=== PATIENT | female | born 1990 | race African-American/Black ===

== ENCOUNTER 2017-10-27 03:20 | Emergency (ER) | payer SELFPAY ==
[~2017-10-27] VITALS: Ht 165.1 cm; Wt 123.8 kg
[~2017-10-27 03:20] MED LIST: CEPH-368 PO; CIPR250T2 PO; FURO20TA3 PO; IBUP-1222 PO; LEVO500T47 PO; OSEL75CA PO
[2017-10-27] MEDS ORDERED: METH40TA3 PO (03:50)
[2017-10-27 05:39] VITALS: BP 129/79
== END 2017-10-27 07:06 | disposition home or self-care (01) ==
LOC: ED 06:53
DX: S33.5XXA Sprain of ligaments of lumbar spine, initial encounter (principal); S13.4XXA Sprain of ligaments of cervical spine, initial encounter; V43.53XA Car driver injured in collision with pick-up truck in traffic accident, initial encounter; Y93.89 Activity, other specified; Y92.410 Unspecified street and highway as the place of occurrence of the external cause; Y99.8 Other external cause status
CPT/HCPCS: 72020; 72050; 72110; 99284

== ENCOUNTER 2018-07-31 15:50 | Emergency (ER) | payer SELFPAY ==
[~2018-07-31] VITALS: Ht 165.1 cm; Wt 117.9 kg
[~2018-07-31 15:50] MED LIST changes: +METH40TA3 PO
[2018-07-31 17:00] LABS: BASOPHILS # (AUTO) 0.03 x10^3/uL (0-0.1); BASOPHILS % (AUTO) 1 % (0-1); EOSINOPHILS # (AUTO) 0.05 x10^3/uL (0-0.4); EOSINOPHILS % (AUTO) 1 % (1-7); LYMPHOCYTES % (AUTO) 40 % (22-44); MD NO; MEAN CORPUSCULAR HEMOGLOBIN 25.5 pg (27.0-34.8); MEAN CORPUSCULAR HGB CONC 31.1 g/dL (32.4-35.8); MEAN CORPUSCULAR VOLUME 81.9 fL (80-100); MEAN PLATELET VOLUME 8.6 fL (7.4-10.4); MONOCYTES # (AUTO) 0.38 x10^3/uL (0.2-0.8); MONOCYTES % (AUTO) 6 % (2-9); NEUTROPHILS # (AUTO) 3.29 x10^3/uL (1.8-6.8); NEUTROPHILS % (AUTO) 53 % (42-75); PLATELET COUNT 369 x10^3/uL (130-400); RED BLOOD COUNT 4.24 x10^6/uL (3.82-5.3); RED CELL DISTRIBUTION WIDTH 16.7 % (9.6-15.2)
[2018-07-31 17:03] LABS: ALBUMIN 3.1 g/dL (3.4-5.0); ANION GAP 4 mmol/L (5-15); CALCIUM 8.2 mg/dL (8.5-10.1); CHLORIDE 108 mmol/L (98-107)
[2018-07-31 17:07] LABS: ALANINE AMINOTRANSFERASE 25 U/L (12-78); ALKALINE PHOSPHATASE 119 U/L (45-117); BILIRUBIN,TOTAL 0.2 mg/dL (0.2-1.0); CREATININE 0.87 mg/dL (0.55-1.02); TOTAL PROTEIN 8.1 g/dL (6.4-8.2)
[2018-07-31 17:36] LABS: CULTURE INDICATED? YES; MICROSCOPIC INDICATED
[2018-07-31 19:15] VITALS: BP 144/83
[2018-07-31 19:16] LABS: HCG UR SG 1.021 (1.003-1.030)
== END 2018-07-31 20:14 | disposition home or self-care (01) ==
LOC: ED 20:00
DX: N30.00 Acute cystitis without hematuria (principal)
CPT/HCPCS: 36415; 80053; 81001; 81025; 83690; 85025; 87086; 99283

== ENCOUNTER 2021-01-19 14:16 | Emergency (ER) | payer MEDICAID ==
[~2021-01-19] VITALS: Ht 165.1 cm; Wt 130.6 kg
[~2021-01-19 14:16] MED LIST changes: -OSEL75CA PO; +OSEL75CA26 PO
[2021-01-19 14:19] VITALS: BP 154/100
--- NOTE | 2021-01-19 16:03 | NUR ---
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
== END 2021-01-19 17:27 | disposition home or self-care (01) ==
LOC: ED 14:46
DX: U07.1 COVID-19 (principal); R50.9 Fever, unspecified; R05 Cough; M79.10 Myalgia, unspecified site; R00.0 Tachycardia, unspecified
CPT/HCPCS: 99281

== ENCOUNTER 2021-01-20 21:36 | Inpatient (IN) | payer MEDICAID ==
[~2021-01-20] VITALS: Ht 165.1 cm; Wt 130.8 kg
[2021-01-20] MEDS ORDERED: ONDANSETRON 2MG/ML, 2ML IVPush ONE (22:00)
[2021-01-20] MEDS ORDERED: SODIUM CHLORIDE FLUSH 10ML SYR IVF ONE (22:00)
[2021-01-20] MEDS ORDERED: SODIUM CHLORIDE 0.9% 1,000ML IVBOLUS ONE (22:00)
--- NOTE | 2021-01-20 22:20 | NUR ---
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
[2021-01-20 22:22] LABS: BASOPHILS % (AUTO) 0 % (0-1); EOSINOPHILS % (AUTO) 0 % (1-7); LYMPHOCYTES % (AUTO) 15 % (22-44); MEAN CORPUSCULAR HEMOGLOBIN 27.3 pg (27.0-34.8); MEAN CORPUSCULAR HGB CONC 32.2 g/dL (32.4-35.8); MEAN PLATELET VOLUME 7.9 fL (7.4-10.4); MONOCYTES % (AUTO) 4 % (2-9); NEUTROPHILS % (AUTO) 81 % (42-75); PLATELET COUNT 274 x10^3/uL (130-400); RED BLOOD COUNT 5.34 x10^6/uL (3.82-5.3); RED CELL DISTRIBUTION WIDTH 16.5 % (9.6-15.2)
[2021-01-20 22:34] LABS: ALANINE AMINOTRANSFERASE 33 U/L (12-78); ALBUMIN 3.2 g/dL (3.4-5.0); ANION GAP 5 mmol/L (5-15); CALCIUM 8.2 mg/dL (8.5-10.1); CHLORIDE 105 mmol/L (98-107); CREATININE 0.78 mg/dL (0.55-1.02)
[2021-01-20 22:39] LABS: ALKALINE PHOSPHATASE 83 U/L (45-117); BILIRUBIN,TOTAL 0.2 mg/dL (0.2-1.0); TOTAL PROTEIN 9.1 g/dL (6.4-8.2)
[2021-01-20] MEDS ORDERED: ONDANSETRON 2MG/ML, 2ML ONE (22:55)
--- NOTE | 2021-01-20 23:27 | NUR ---
PT PLACED BACK ON 2L NC.
--- NOTE | 2021-01-20 23:27 | NUR ---
PT TAKEN OFF O2 AND MAINTAINED O2 97% FOR 5 MINS BUT THEN DESATED TO 79% AT REST ON RA.
[2021-01-21] MEDS ORDERED: KETOROLAC 30 MG/1 ML IVPush ONE (01:00)
[2021-01-21] MEDS ORDERED: AZITHROMYCIN 500 MG in SODIUM CHLORIDE 0.9% 250 ML IV ONE (01:00)
[2021-01-21] MEDS ORDERED: CEFTRIAXONE 1,000 MG in DEXTROSE 5% 50 ML IVPB ONE (01:00)
[2021-01-21] MEDS ORDERED: KETOROLAC 30 MG/1 ML ONE (01:00)
--- NOTE | 2021-01-21 01:12 | NUR ---
PT SWABBED FOR COVID-19 AND WALKED TO LAB
[2021-01-21 01:51] VITALS: BP 101/67
[2021-01-21] MEDS ORDERED: MELATONIN 5 MG TABLET PO PRN (02:00)
[2021-01-21] MEDS ORDERED: POLYETHYLENE GLYCOL 17 GM PACKET PO PRN (02:00)
[2021-01-21] MEDS ORDERED: ONDANSETRON 2MG/ML, 2ML IVPush PRN (02:00)
[2021-01-21] MEDS ORDERED: ENOXAPARIN 40 MG/0.4 ML SQ SCH (02:00)
[2021-01-21] MEDS ORDERED: LABETALOL 5MG/ML, 20ML IVPush PRN (02:00)
[2021-01-21] MEDS ORDERED: PHARMACY MAY ADJ FOR RENAL FX MC PRN (02:00)
[2021-01-21] MEDS: DEXAMETHASONE 4 MG/ML, 1ML IVPush SCH ×4 (02:38→20:39)
[2021-01-21] MEDS ORDERED: KETOROLAC 30 MG/1 ML IM PRN (03:00)
[2021-01-21] MEDS: ACETAMINOPHEN 500 MG TABLET PO SCH ×6 (03:00→20:40)
[2021-01-21 08:13] VITALS: BP 112/77
[2021-01-21] MEDS: ASCORBIC ACID 500 MG TABLET PO SCH ×2 (08:16→20:40)
[2021-01-21] MEDS: ZINC SULFATE 220 MG CAPSULE PO SCH (08:16)
[2021-01-21] MEDS ORDERED: FAMOTIDINE 20 MG TABLET PO SCH (09:00)
[2021-01-21] MEDS ORDERED: METHADONE INTENSOL 10 MG/ML ORAL CONC PO PRN (09:00)
[2021-01-21] MEDS: METHADONE 10 MG TABLET PO PRN (09:39)
[2021-01-21] MEDS: LORazepam 2 MG/ML, 1ML IVPush PRN (13:20)
[2021-01-21 13:50] VITALS: BP 121/84
[2021-01-21] MEDS: ENOXAPARIN 40 MG/0.4 ML SQ SCH (15:09)
[2021-01-21] MEDS ORDERED: PHARMACY INSTRUCTION MC SCH (18:30)
[2021-01-21] MEDS ORDERED: REMDESIVIR 200 MG in SODIUM CHLORIDE 0.9% 250 ML IVPB ONE (18:30)
[2021-01-21 18:33] LABS: C-REACTIVE PROTEIN, QUANT 1.8 mg/dL (0.02-0.49)
[2021-01-21 20:05] VITALS: BP 120/76
[2021-01-21] MEDS: GUAIFENESIN ER 600 MG TABLET PO SCH (20:40)
[2021-01-22] MEDS: ACETAMINOPHEN 500 MG TABLET PO SCH ×6 (00:07→20:46)
[2021-01-22 00:37] LABS: AMPHETAMINE SCREEN, URINE Negative (Negative); BARBITURATE SCREEN, URINE Negative (Negative); BENZODIAZEPINE SCREEN, URINE Negative (Negative); CANNABINOID SCREEN, URINE Negative (Negative); COCAINE SCREEN, URINE Negative (Negative); METHADONE SCREEN, URINE Positive (Negative); OPIATE SCREEN, URINE Negative (Negative)
[2021-01-22] MEDS: DEXAMETHASONE 4 MG/ML, 1ML IVPush SCH ×4 (02:00→20:46)
[2021-01-22] MEDS: ENOXAPARIN 40 MG/0.4 ML SQ SCH ×2 (02:01→14:59)
[2021-01-22 02:04] VITALS: BP 122/84
[2021-01-22 05:34] LABS: BASOPHILS % (AUTO) 0 % (0-1); EOSINOPHILS % (AUTO) 0 % (1-7); LYMPHOCYTES % (AUTO) 31 % (22-44); MEAN CORPUSCULAR HEMOGLOBIN 27.1 pg (27.0-34.8); MEAN CORPUSCULAR HGB CONC 32.1 g/dL (32.4-35.8); MEAN PLATELET VOLUME 8.1 fL (7.4-10.4); MONOCYTES % (AUTO) 5 % (2-9); NEUTROPHILS % (AUTO) 64 % (42-75); PLATELET COUNT 246 x10^3/uL (130-400); RED BLOOD COUNT 4.92 x10^6/uL (3.82-5.3); RED CELL DISTRIBUTION WIDTH 16.5 % (9.6-15.2)
[2021-01-22] MEDS: METHADONE 10 MG TABLET PO PRN (05:35)
[2021-01-22 05:42] LABS: ANION GAP 5 mmol/L (5-15); CALCIUM 8.1 mg/dL (8.5-10.1); CHLORIDE 107 mmol/L (98-107)
[2021-01-22 05:44] LABS: CREATININE 0.55 mg/dL (0.55-1.02)
[2021-01-22] MEDS: ASCORBIC ACID 500 MG TABLET PO SCH ×2 (07:56→20:46)
[2021-01-22] MEDS: GUAIFENESIN ER 600 MG TABLET PO SCH ×2 (07:56→20:46)
[2021-01-22] MEDS: ZINC SULFATE 220 MG CAPSULE PO SCH (07:56)
[2021-01-22 08:00] VITALS: BP 117/81
[2021-01-22 12:27] VITALS: BP 130/81
[2021-01-22 19:32] VITALS: BP 111/73
[2021-01-22] MEDS: REMDESIVIR 100 MG in SODIUM CHLORIDE 0.9% 250 ML IVPB SCH (20:47)
[2021-01-23 00:17] VITALS: BP 114/71
[2021-01-23] MEDS: REMDESIVIR 100 MG in SODIUM CHLORIDE 0.9% 250 ML IVPB SCH (00:25)
[2021-01-23] MEDS: ACETAMINOPHEN 500 MG TABLET PO SCH ×6 (00:53→21:11)
[2021-01-23] MEDS: DEXAMETHASONE 4 MG/ML, 1ML IVPush SCH ×4 (03:17→21:11)
[2021-01-23] MEDS: ENOXAPARIN 40 MG/0.4 ML SQ SCH ×2 (03:17→16:24)
[2021-01-23] MEDS: METHADONE 10 MG TABLET PO PRN (04:53)
[2021-01-23 05:26] LABS: BASOPHILS % (AUTO) 0 % (0-1); EOSINOPHILS % (AUTO) 0 % (1-7); LYMPHOCYTES % (AUTO) 25 % (22-44); MEAN CORPUSCULAR HEMOGLOBIN 27.2 pg (27.0-34.8); MEAN CORPUSCULAR HGB CONC 31.9 g/dL (32.4-35.8); MEAN PLATELET VOLUME 8.5 fL (7.4-10.4); MONOCYTES % (AUTO) 6 % (2-9); NEUTROPHILS % (AUTO) 69 % (42-75); PLATELET COUNT 216 x10^3/uL (130-400); RED BLOOD COUNT 4.77 x10^6/uL (3.82-5.3); RED CELL DISTRIBUTION WIDTH 16.9 % (9.6-15.2)
[2021-01-23 05:35] LABS: ANION GAP 3 mmol/L (5-15); CALCIUM 8.1 mg/dL (8.5-10.1); CHLORIDE 108 mmol/L (98-107)
[2021-01-23 05:44] LABS: ALANINE AMINOTRANSFERASE 35 U/L (12-78); ALBUMIN 2.6 g/dL (3.4-5.0); ALKALINE PHOSPHATASE 60 U/L (45-117); BILIRUBIN,TOTAL 0.5 mg/dL (0.2-1.0); CREATININE 0.59 mg/dL (0.55-1.02); TOTAL PROTEIN 7.6 g/dL (6.4-8.2)
[2021-01-23 07:05] VITALS: BP 119/72
[2021-01-23] MEDS: ZINC SULFATE 220 MG CAPSULE PO SCH (09:47)
[2021-01-23] MEDS: GUAIFENESIN ER 600 MG TABLET PO SCH ×2 (09:47→21:11)
[2021-01-23] MEDS: ASCORBIC ACID 500 MG TABLET PO SCH ×2 (09:47→21:00)
[2021-01-23] MEDS: LORazepam 2 MG/ML, 1ML IVPush PRN (10:35)
[2021-01-23 16:27] VITALS: BP 114/77
[2021-01-23] MEDS ORDERED: ASCORBIC ACID 250 MG TAB ONE (21:03)
[2021-01-24] MEDS: ACETAMINOPHEN 500 MG TABLET PO SCH ×6 (00:45→20:57)
[2021-01-24 00:59] VITALS: BP 132/84
[2021-01-24] MEDS: REMDESIVIR 100 MG in SODIUM CHLORIDE 0.9% 250 ML IVPB SCH (01:16)
[2021-01-24] MEDS: DEXAMETHASONE 4 MG/ML, 1ML IVPush SCH ×4 (04:16→20:57)
[2021-01-24] MEDS: METHADONE 10 MG TABLET PO PRN (04:17)
[2021-01-24] MEDS: ENOXAPARIN 40 MG/0.4 ML SQ SCH ×2 (04:18→14:57)
[2021-01-24 07:32] VITALS: BP 118/76
[2021-01-24] MEDS: ZINC SULFATE 220 MG CAPSULE PO SCH (08:30)
[2021-01-24] MEDS: ASCORBIC ACID 500 MG TABLET PO SCH ×2 (08:30→20:57)
[2021-01-24] MEDS: GUAIFENESIN ER 600 MG TABLET PO SCH ×2 (08:31→20:57)
[2021-01-24 10:00] LABS: BASOPHILS % (AUTO) 0 % (0-1); EOSINOPHILS % (AUTO) 0 % (1-7); LYMPHOCYTES % (AUTO) 20 % (22-44); MEAN CORPUSCULAR HEMOGLOBIN 27.2 pg (27.0-34.8); MEAN CORPUSCULAR HGB CONC 31.9 g/dL (32.4-35.8); MEAN PLATELET VOLUME 8.3 fL (7.4-10.4); MONOCYTES % (AUTO) 4 % (2-9); NEUTROPHILS % (AUTO) 76 % (42-75); PLATELET COUNT 229 x10^3/uL (130-400); RED BLOOD COUNT 4.92 x10^6/uL (3.82-5.3)
[2021-01-24 10:06] LABS: ALBUMIN 2.8 g/dL (3.4-5.0); ANION GAP 6 mmol/L (5-15); CALCIUM 7.9 mg/dL (8.5-10.1); CHLORIDE 106 mmol/L (98-107)
[2021-01-24 10:09] LABS: ALANINE AMINOTRANSFERASE 87 U/L (12-78); ALKALINE PHOSPHATASE 59 U/L (45-117); BILIRUBIN,TOTAL 0.3 mg/dL (0.2-1.0); CREATININE 0.71 mg/dL (0.55-1.02); TOTAL PROTEIN 7.6 g/dL (6.4-8.2)
[2021-01-24] MEDS: LORazepam 2 MG/ML, 1ML IVPush PRN (18:20)
[2021-01-24 20:59] VITALS: BP 149/89
[2021-01-25 01:04] VITALS: BP 152/92
[2021-01-25] MEDS: ACETAMINOPHEN 500 MG TABLET PO SCH ×5 (01:04→17:58)
[2021-01-25] MEDS: REMDESIVIR 100 MG in SODIUM CHLORIDE 0.9% 250 ML IVPB SCH (01:04)
[2021-01-25] MEDS: LORazepam 2 MG/ML, 1ML IVPush PRN (02:58)
[2021-01-25] MEDS: DEXAMETHASONE 4 MG/ML, 1ML IVPush SCH ×3 (05:14→14:03)
[2021-01-25] MEDS: ENOXAPARIN 40 MG/0.4 ML SQ SCH ×2 (05:14→14:03)
[2021-01-25] MEDS: METHADONE 10 MG TABLET PO PRN (05:25)
[2021-01-25 06:30] LABS: ALBUMIN 2.8 g/dL (3.4-5.0); ANION GAP 6 mmol/L (5-15); CALCIUM 8.3 mg/dL (8.5-10.1); CHLORIDE 105 mmol/L (98-107)
[2021-01-25 06:33] LABS: ALANINE AMINOTRANSFERASE 75 U/L (12-78); ALKALINE PHOSPHATASE 57 U/L (45-117); BILIRUBIN,TOTAL 0.3 mg/dL (0.2-1.0); CREATININE 0.68 mg/dL (0.55-1.02); TOTAL PROTEIN 7.8 g/dL (6.4-8.2)
[2021-01-25] MEDS: GUAIFENESIN ER 600 MG TABLET PO SCH (09:12)
[2021-01-25] MEDS: ASCORBIC ACID 500 MG TABLET PO SCH (09:13)
[2021-01-25] MEDS: ZINC SULFATE 220 MG CAPSULE PO SCH (09:13)
[2021-01-25] MEDS ORDERED: ASCO500T9 PO (10:49)
[2021-01-25] MEDS ORDERED: ZINC220C8 PO (10:49)
[2021-01-25] MEDS ORDERED: DEXA6TAB6 PO (10:49)
[2021-01-25] MEDS ORDERED: GUAI600T31 PO (10:49)
[2021-01-25] MEDS ORDERED: NICO-486 TD (10:50)
== END 2021-01-25 18:15 | disposition home or self-care (01) | DRG 137 ==
LOC: ED 22:06 → EDIP 01-21 01:26 → 3N 01-21 01:48
PROVIDERS: ADMIT Internal Medicine; ATTEND Family Medicine
PROC: XW033E5 Introduction of Remdesivir Anti-infective into Peripheral Vein, Percutaneous Approach, New Technology Group 5 (ICD-10-PCS; principal; 2021-01-22)
DX: U07.1 COVID-19 (principal); J96.01 Acute respiratory failure with hypoxia; J12.82 Pneumonia due to coronavirus disease 2019; E66.2 Morbid (severe) obesity with alveolar hypoventilation; F11.20 Opioid dependence, uncomplicated; Z68.42 Body mass index [BMI] 45.0-49.9, adult; F17.200 Nicotine dependence, unspecified, uncomplicated; F17.210 Nicotine dependence, cigarettes, uncomplicated; Z79.899 Other long term (current) drug therapy
CPT/HCPCS: 36415; 36600; 71045; 80048; 80053; 80307; 82728; 82803; 83615; 84145; 84703; 85025; 85379; 86140; 93005; 96374; 96375; G0378; J0456; J0696; J1100; J1650; J1885; J2405; U0005; J2060; J7030; J7050; U0003